=== PATIENT | female | born 1955 ===

== ENCOUNTER 2019-02-17 10:13 | Day surgery (SDC) | payer OTHER ==
[~2019-02-17 10:13] MED LIST: SYNTHROID112 MCG PO
== END 2019-02-17 13:10 | disposition home or self-care (01) ==
LOC: AMB-ENDOS 10:13 → ADM 02-21 09:45
DX: D12.2 Benign neoplasm of ascending colon (principal); D12.5 Benign neoplasm of sigmoid colon

== ENCOUNTER 2019-09-22 09:40 | Day surgery (SDC) | payer OTHER | END 2019-09-22 14:25 | disposition home or self-care (01) | LOC: AMB-ENDOS 09:40 → ADM 13:45 → AMB-ENDOS 14:25 | PROVIDERS: ATTEND Surgery | DX: D12.2 Benign neoplasm of ascending colon (principal); D12.5 Benign neoplasm of sigmoid colon; N81.6 Rectocele; Z12.11 Encounter for screening for malignant neoplasm of colon ==